=== PATIENT | female | born 1945 | race Caucasian/White ===

== ENCOUNTER 2018-03-29 16:44 | Emergency (ER) | payer MEDICARE, OTHER ==
[2018-03-29] MEDS ORDERED: ATOR20TA22 PO (17:04)
[2018-03-29] MEDS ORDERED: ASPI-1471 PO (17:04)
[2018-03-29] MEDS ORDERED: METO25TA23 PO (17:04)
[2018-03-29] MEDS ORDERED: PANT40TA65 PO (17:04)
[2018-03-29] MEDS ORDERED: FERR324T13 PO (17:04)
--- NOTE | 2018-03-29 17:21 | ER Report ---
History and Physical Time Seen By MD: 17:21 Hx. of Stated Complaint: RIGHT NOSE BLEED HPI/ROS CHIEF COMPLAINT: Nosebleed HISTORY OF PRESENT ILLNESS: 72-year-old female patient presents to emergency room with complaint of a nosebleed. Patient states that she has a long-standing history of nosebleeds. 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 She states that she did apply pressure and packed with Kleenex. She states that she was able to drive to [place] from there. She states that she does feel fine at this time. She does continue to have packing that she placed herself. She states that she is not having shortness of breath, nausea, vomiting. Patient denies taking any blood thinners. She does take an 81 mg aspirin daily. Patient was recently admitted to a hospital in [place] where she was found to be anemic and received 3 units of blood. REVIEW OF SYSTEMS: Respiratory: No cough, no dyspnea. Cardiovascular: No chest pain, no palpitations. Gastrointestinal: No vomiting, no abdominal pain. Musculoskeletal: No back pain. Allergies: Coded Allergies: morphine (Verified Allergy, Unknown, ITCHING, 03/29/18) shellfish derived (Verified Allergy, Unknown, ANAPHYLAXIS, 03/29/18) Home Meds Reported Medications Ferrous Gluconate (FERROUS GLUCONATE) 324 Mg Tablet, 324 MG PO BID 03/29/18 Pantoprazole Sodium (PANTOPRAZOLE SODIUM) 40 Mg Tablet.dr, 40 MG PO QDAY, TAB.SR 03/29/18 Atorvastatin Calcium (LIPITOR) 20 Mg Tablet, 1 TAB PO QDAY, TAB 03/29/18 Metoprolol Succinate (METOPROLOL SUCCINATE) 25 Mg Tab.er.24h, 1 TAB PO QDAY, TAB 03/29/18 Aspirin (ASPIR 81) 81 Mg Tablet.dr, 81 MG PO QDAY, TAB 03/29/18 Past Medical/Surgical History Patient has a past medical history of hypertension, COPD, bladder infections, d iabetes, frequent nosebleeds. Patient has a surgical history of appendectomy, small bowel obstruction, hysterectomy, tumor removed from left breast. Reviewed Nurses Notes: Yes Hx Substance Use Disorder: No Hx Alcohol Use: No Constitutional Vital Sign - Last 24 Hours 03/29/18 03/29/18 03/29/18 03/29/18 16:44 16:50 16:56 17:00 Temp 98.3 Pulse 88 83 Resp 13 B/P (MAP) 175/82 (113) 175/83 155/74 (101) Pulse Ox 91 93 O2 Delivery Room Air 03/29/18 03/29/18 03/29/18 03/29/18 17:14 17:30 17:44 18:00 Pulse 87 79 B/P (MAP) 159/80 (106) 167/87 (113) Pulse Ox 90 89 03/29/18 03/29/18 03/29/18 03/29/18 18:19 18:30 18:49 18:54 Pulse 80 80 ??? B/P (MAP) 173/84 (113) Pulse Ox 89 89 90 03/29/18 03/29/18 03/29/18 19:27 19:32 20:02 Pulse 82 81 B/P (MAP) 169/83 (111) Pulse Ox 90 90 Physical Exam General Appearance: The patient is alert, has no immediate need for airway protection and no current signs of toxicity. ENT: Patient does have bloodsoaked packing in right naris, she has blood located back throat. Respiratory: Chest is non tender, lungs are clear to auscultation. Cardiac: regular rate and rhythm Gastrointestinal: Abdomen is soft and non tender, no masses, bowel sounds normal. Musculoskeletal: Neck: Neck is supple and non tender. Extremities have full range of motion and are non tender. Skin: No rashes or lesions. DIFFERENTIAL DIAGNOSIS: After history and physical exam differential diagnosis was considered for epistaxis. Medical Decision Making ED Course/Re-evaluation ED Course Patient was admitted to examine, history and physical were obtained. Differential diagnoses were considered. On examination lungs are clear, heart is regular, abdomen soft nontender. Patient does have blood coming from the right nares. I was able to remove the packing which replaced prior to coming in. We then used some Sotero-Synephrine. She had some persistent oozing after that. We then attempted to some lidocaine with epinephrine with no improvement. I then used TXA and a cottonball for packing. After 30 minutes of did remove that there appeared to be no bleeding. We did continue to watch her for about 10 minutes one to walk her around and she started having bleeding again. At that time it was decided to go ahead and pack her. I did place a Rhino Rocket in the right near and used Sotero-Synephrine to help expand the packing as well as to help with the bleeding. We did watch her for another 15 minutes and patient had no persistent bleeding at that time. She is discharged home. She is remove the packing in 24 hours. Patient verbalized understanding and agreement with plan. Decision to Disposition Date: Mar 29, 2018 Decision to Disposition Time: 19:05 Depart Departure Latest Vital Signs Vital Signs Date Time Temp Pulse Resp B/P (MAP) Pulse Ox O2 Delivery O2 Flow Rate FiO2 03/29/18 20:02 81 90 03/29/18 19:27 169/83 (111) 03/29/18 16:56 98.3 13 Room Air Impression: Primary Impression: Epistaxis Condition: Improved Disposition: HOME OR SELF-CARE Patient Instructions: Nosebleed (ED) Additional Instructions: Increase fluid intake. Get plenty of rest. If you have a recurrence try blowing your nose to clear out the blood, then spray with the Afrin/Sotero-Synephrine, and apply nasal clamp. If that doesn't stop the bleeding come into the ER. Follow up with your primary care provider when you return home. Return to the ER if condition worsens. EDMAR ALVAREZ Mar 29, 2018 17:21
[2018-03-29] MEDS ORDERED: ENT KIT ONE (17:25)
[2018-03-29] MEDS ORDERED: TRANEXAMIC AC 1000 MG/10ML SDV ONE (19:15)
[2018-03-29 19:27] VITALS: BP 169/83
[2018-03-30] MEDS ORDERED: LIDO/EPI 2% MDV 1:100,000 20ML INFIL ONE (00:13)
[2018-03-30] MEDS ORDERED: PHENYLEPHRINE 0.5% 15 ML BTL ONE (00:13)
== END 2018-03-29 20:17 | disposition home or self-care (01) ==
LOC: ER 17:31
DX: R04.0 Epistaxis (principal)
CPT/HCPCS: 30903; 99283